=== PATIENT | male | born 1930 | race Caucasian/White ===

== ENCOUNTER 2016-06-22 08:15 | Emergency (ER) | payer OTHER ==
[2016-06-22 08:20] VITALS: BP 146/96
[2016-06-22 08:43] LABS: MANUAL DIFF NEEDED? NO
[2016-06-22 08:46] LABS: BASO% 0.2 % (0.0-0.8); EOS# 0.09 X1000 (0.0-0.7); HEMOGLOBIN 13.8 g/dL (14.0-18.0); IMM GRAN# 0.07 X1000 (0.0-0.04); IMM GRAN% 0.8 % (0.0-0.5); LYMPH# 2.13 X1000 (1.2-3.4); MCH 32.4 PG (27-31); MCHC 33.7 g/dL (33-37); MCV 96.2 FL (81-99); MONO# 0.64 X1000 (0.11-0.59); MONO% 7.2 % (1.7-9.3); MPV 10.7 FL (7.4-10.4); NEUT% 66.8 % (42.2-75.2); PLT 166 X1000 (130-400); RBC 4.26 XMIL (4.7-6.1)
[2016-06-22 08:54] LABS: INR 1.23; PROTIME 13.1 Seconds (9.2-11.7)
--- NOTE | 2016-06-22 09:39 | PROVIDER DOCUMENTATION ---
HPI-Musculoskeletal Pain/Inj - GENERAL Chief Complaint: Extremity Pain Stated Complaint: poss bloot clot Lft leg Time Seen by Provider: 06/22/16 08:18 Source: patient - HX OF PRESENT ILLNESS-MUSKULOSKELTAL Nature of Presenting Problem: pt is a 86 yo M that presents to the Er left leg and thigh pain similar to his pain when he had a blood clot before. He recently had his Coumadin to 2.5mg from 5mg. Denies cp, sob, or swelling Quality of Pain: reports: dull Severity in ED: mild, moderate Onset/Duration: unsure Timing: still present, constant Modifying Factors: improves with: nothing Locality of Occurance: Home Similar Symptoms Previously?: Yes Recently seen or treated by another doctor?: No - LOWER EXTREMITY PAIN/INJURY Lower Extremities Pain: leg: left, thigh: left Context / Method of Injury: reports: unknown Associated Symptoms: reports: denies symptoms Review of Systems - Adult - REVIEW OF SYSTEMS - ADULT Constitutional: denies: chills, fever Eyes: reports: no symptoms reported Ears, Nose, Mouth & Throat: reports: no symptoms reported Cardiovascular: denies: chest pain, palpitations Respiratory: denies: dyspnea on exertion, shortness of breath Gastrointestinal: denies: abdominal pain, nausea, vomiting Genitourinary: reports: no symptoms reported Musculoskeletal: reports: see HPI Integumentary: reports: no symptoms reported Neurological: reports: no symptoms reported Psychiatric: reports: no symptoms reported Endocrine: reports: no symptoms reported Hematologic/Lymphatic: reports: no symptoms reported Allergic/Immunologic: reports: no symptoms reported All Other Systems: Reviewed and Negative Past History - Adult - PAST MEDICAL HISTORY-ADULT Review of Records: reports: Old Records Reviewed, Nursing Assessment Review, Medications Reviewed Cardiovascular: reports: blood clots - PRIOR SURGERIES/PROCEDURES Surgical/Procedure History: reports: reviewed, not pertinent - IMMUNIZATION STATUS Childhood Immunizations: See Nurse Assessment Flu Vaccine: See Nurse Assessment - FAMILY HISTORY Family History: reviewed, not pertinent - SOCIAL HISTORY Living Situation: family Physical Exam-Injury Related - Physical Exam-Injury Related Initial Vital Signs Reviewed: Yes General Appearance: alert, no apparent distress Eyes: PERRL/EOMI, pink conjunctivae Head, Ears, Nose, Mouth & Throat: normocephalic/atraumatic, moist mucous membranes, normal ENT inspection Neck: non-tender, full range of motion, normal inspection Respiratory: lungs clear, normal breath sounds, no respiratory distress, no accessory muscle use Cardiovascular: regular rate, rhythm, no edema, no murmur Peripheral Pulses: dorsalis-pedis (R): 4+, dorsalis-pedis (L): 4+ Abdominal Exam: normal bowel sounds, non tender, soft Extremity: no calf tenderness, normal capillary refill, pelvis stable Integumentary: warm/dry, other (varicos vein left lower leg) Neurologic: grossly normal, no motor/sensory deficits Psych/Mental Status: normal mood/affect, normal thought process, oriented x 3 Progress - PLAN OF CARE/RESULTS Progress/Plan/Lab Results: Vital Signs Temp Pulse Resp BP Pulse Ox 06/22/16 08:18 97.9 F 61 18 146/96 99 Iodinated Contrast Media - Oral and Allergy (Severe, Verified 05/13/16 10:23) RASH IV DYE Ascorbic Acid [Vitamin C] 500 mg PO QAM 06/19/15 Carvedilol Phosphate [Coreg Cr] 40 mg PO QAM 06/19/15 Diphenhydramine [Benadryl] 25 mg PO QHS 06/19/15 Finasteride [Proscar] 5 mg PO QAM 06/19/15 Furosemide [Lasix] 5 mg PO QAM 06/19/15 Vit No.78/Iron/FA [Prenatabs FA Tablet] 1 each PO QAM 06/19/15 Temazepam [Restoril] 30 mg PO HS 06/19/15 Thiamine HCl [Vitamin B-1] 250 mg PO QAM 06/19/15 Warfarin [Coumadin] 2.5 mg PO DIRECTED 06/19/15 Warfarin [Coumadin] 5 mg PO QHS 06/19/15 Doxycycline Hyclate 100 mg PO Q12HR #14 capsule 05/06/16 Laboratory 06/22/16 06/22/16 08:32 08:32 WBC 8.87 RBC 4.26 L Hgb 13.8 L Hct 41.0 L MCV 96.2 MCH 32.4 H MCHC 33.7 RDW Std Deviation 14.8 H Plt Count 166 MPV 10.7 H Immature Gran % (Auto) 0.8 H Neut % (Auto) 66.8 Lymph % (Auto) 24.0 Lynn % (Auto) 7.2 Eos % (Auto) 1.0 Baso % (Auto) 0.2 Immature Gran # (Auto) 0.07 H Neut # (Auto) 5.92 Lymph # (Auto) 2.13 Lynn # (Auto) 0.64 H Eos # (Auto) 0.09 Baso # (Auto) 0.02 PT 13.1 H INR 1.23 Orders Category Date Time Status CBC WITH ELECTRONIC DIFF [HEME] Stat Lab 06/22/16 08:32 Completed PT [PROTIME WITH INR] [COAG] Stat Lab 06/22/16 08:32 Completed US [Venous U/S Left Leg] [CV] Stat Ther 06/22/16 08:18 Ordered pt will be d/c home f/u with pcp, increased Coumadin to 5mg daily per . pt was clinically stable, pt understood instructions. - ULTRASOUND (By Radiology) 1 US Study: Lower Ext (left) Impression: Abnormal US Results: no dvt, just superficial - CONSULTS/PCP/HOSPITALIST Notification #1 *Consult/PCP/Hospitalist*: Time Discussed: 09:30 Reason/Comments: increase coumadin to 5mg daily Consult Disposition: F/U in office Departure - Departure Time of Disposition Order: 09:34 DIAGNOSIS: Subtherapeutic anticoagulation Superficial thrombophlebitis Qualifiers: Superficial thrombophlebitis-Involved body area: lower extremity Laterality: left Qualified Code(s): I80.02 - Phlebitis and thrombophlebitis of superficial vessels of left lower extremity Disposition: HOME 01 Certified Medical Emergency: Emergent Condition: Stable Additional Instructions: ED Follow Up Instructions: You have been treated by a care provider in the Emergency Department. These instructions are being provided to you so you can have an understanding of how to care for yourself upon discharge. Upon discharge from the Emergency Department, you are responsible for making arrangements for follow-up care by a physician of your choice. Take all prescribed medications as directed. Return to the Emergency Department immediately for any new or worsening symptoms. You may call the Physician Referral phone number at [phone] to obtain a list of Physicians who are taking new patients. Referrals: Andrew Canseco MD [Primary Care Provider] - Call for Appoint. 1-2days Attestation - Scribe Verification/Attestation Scribe:: Chuy Whiteside Acting as Scribe for:: Hamlet Saucedo Scribe documention review:: This chart was documented by a scribe and accurately reflects the service the provider performed and the decisions made by the provider. Physician Attestation - Physician Attestation I, the provider, attest to the following statement:: Hamlet Saucedo Physician documentation Attestation:: This documentation recorded by the scribe accurately reflects the service I personally performed and the decisions made by me.
== END 2016-06-22 09:49 | disposition home or self-care (01) ==
LOC: ED 08:15
DX: I80.02 Phlebitis and thrombophlebitis of superficial vessels of left lower extremity (principal); Z79.01 Long term (current) use of anticoagulants; M79.605 Pain in left leg; M79.652 Pain in left thigh; Z86.718 Personal history of other venous thrombosis and embolism; Z79.899 Other long term (current) drug therapy; Z79.52 Long term (current) use of systemic steroids
CPT/HCPCS: 85025; 85610; 93971

== ENCOUNTER 2019-01-05 14:30 | Inpatient (IN) ==
[2019-01-05] MEDS ORDERED: KEFZOL 1 GM/D5W 1 GM/50 ML IVPB IV ONE ×2 (14:37→16:12)
[2019-01-05] MEDS ORDERED: BOOSTRIX VACCINE IM ONE (14:49)
--- NOTE | 2019-01-05 15:04 | PROVIDER DOCUMENTATION ---
This chart was entered by Julia Baeza Scribe, acting as scribe for Manuela Morales CRNP. HPI-General Adult - General Chief Complaint: Fall Stated Complaint: FALL/ EXTREMITY INJURY Time Seen by Provider: 01/05/19 14:30 Source: patient, EMS Allergies/Adverse Reactions: Patient Allergies Allergy/AdvReac Type Severity Reaction Status Date / Time Iodinated Contrast Media Allergy Severe RASH Verified 12/10/18 17:59 clindamycin Allergy Unknown Verified 12/10/18 18:01 diphenhydramine Allergy HIVES Verified 12/10/18 18:01 meclizine [From Antivert] Allergy Unknown Verified 12/10/18 18:01 metronidazole [From Flagyl] Allergy Unknown Verified 12/10/18 18:01 Home Medications: Home Medication List Medication Instructions Recorded Confirmed Last Taken Type Ascorbic Acid [Vitamin C] 500 mg PO QAM 06/19/15 06/19/15 06/21/16 08:00 History Carvedilol Phosphate [Coreg Cr] 40 mg PO QAM 06/19/15 06/19/15 06/21/16 08:00 History Finasteride [Proscar] 5 mg PO QPM 06/19/15 06/19/15 06/21/16 08:00 History Furosemide [Lasix] 40 mg PO QAM 06/19/15 06/19/15 06/21/16 08:00 History Temazepam [Restoril] 30 mg PO HS 06/19/15 06/19/15 06/21/16 21:00 History Prednisone 10 mg PO QAM 06/22/16 06/22/16 06/21/16 08:00 History Acyclovir 800 mg PO 5XDAY 01/05/19 01/05/19 Unknown History Bethanechol Chloride 50 mg PO Q6H 01/05/19 01/05/19 Unknown History Cyclobenzaprine HCl 10 mg PO Q8H PRN 01/05/19 01/05/19 Unknown History Gabapentin 600 mg PO TID PRN 01/05/19 01/05/19 Unknown History Losartan Potassium 25 mg PO QPM 01/05/19 01/05/19 Unknown History Meloxicam 7.5 mg PO DAILY PRN 01/05/19 01/05/19 Unknown History Pantoprazole Sodium 40 mg PO BID 01/05/19 01/05/19 Unknown History Warfarin [Coumadin] 3 mg PO DAILY 01/05/19 01/05/19 Unknown History - History of Present Illness -Gen Adult Nature of Presenting Problems: 88 y/o male presents to ED with R open ankle fracture onset just prior to arrival due to fall. Pt reports he fell while using his walker. Pt states the pain is burning. Pt is alert and oriented. Location of Pain/Injury: reports: lower extremity Pain Radiation: reports: no radiation Quality of Pain: reports: burning Severity: reports: moderate, severe Onset/Duration: reports: just prior to arrival Timing: reports: still present Context/Activities at Onset: reports: other (fall) Modifying Factors: worse with: movement, palpation Associated Symptoms: reports: joint pain (open R ankle fracture) Similar Symptoms Previously?: No Recently seen or treated by another doctor?: No Review of Systems - Adult - REVIEW OF SYSTEMS - ADULT Constitutional: denies: chills, fever Eyes: reports: no symptoms reported Ears, Nose, Mouth & Throat: reports: no symptoms reported Cardiovascular: denies: chest pain, palpitations Respiratory: denies: cough, shortness of breath Gastrointestinal: denies: abdominal pain, diarrhea, nausea, vomiting Genitourinary: reports: no symptoms reported Musculoskeletal: reports: joint pain (R open ankle fracture). denies: back pain Integumentary: reports: no symptoms reported Neurological: denies: dizziness/vertigo, seizure Psychiatric: reports: no symptoms reported Endocrine: reports: no symptoms reported Hematologic/Lymphatic: reports: no symptoms reported Allergic/Immunologic: reports: no symptoms reported All Other Systems: Reviewed and Negative Past History - Adult - PAST MEDICAL HISTORY-ADULT Review of Records: reports: Old Records Reviewed, Nursing Assessment Review, Medications Reviewed Major Childhood Illnesses: reports: denies history Cardiovascular: reports: blood clots, CAD Gastrointestinal: reports: cancer (colon) Obstetrical/Gynecological: reports: denies history Genitourinary: reports: denies history Musculoskeletal: reports: denies history Neurological: reports: denies history Endocrine/Immune: reports: denies history Other Conditions: reports: denies history - PRIOR SURGERIES/PROCEDURES Surgical/Procedure History: reports: reviewed, not pertinent, bowel surgery (colon), orthopedic (extremity) (R rotator cuff), back/neck, other (varicose veins) - IMMUNIZATION STATUS Childhood Immunizations: See Nurse Assessment Flu Vaccine: See Nurse Assessment - FAMILY HISTORY Family History: reviewed, not pertinent - SOCIAL HISTORY Smoking: non-smoker Substance Use: none/never Alcohol Use Frequency: never Living Situation: family Physical Exam-General - PHYSICAL EXAM-ADULT Initial Vital Signs Reviewed: Yes - CONSTITUTIONAL General Appearance: appears well, alert, no apparent distress - EYES Eyes: PERRL/EOMI, pink conjunctivae - HEAD, EARS, NOSE, MOUTH & THROAT HENMT: normocephalic/atraumatic, moist mucous membranes, normal ENT inspection - NECK Neck: non-tender, full range of motion - RESPIRATORY Respiratory: chest non-tender, lungs clear, normal breath sounds - CARDIOVASCULAR Cardiovascular: normal peripheral pulses, regular rate, rhythm - MUSCULOSKELETAL Back Exam: normal inspection, no CVA tenderness, no vertebral tenderness Extremity: other (R open ankle fracture). negative: normal range of motion, normal gait - SKIN Integumentary: normal color, warm/dry - NEUROLOGIC Neurologic: grossly normal - PSYCHIATRIC Psych/Mental Status: normal mood/affect, normal thought content, normal thought process, oriented x 3 Progress - PLAN OF CARE/RESULTS Progress/Plan/Lab Results: Vital Signs - 8 hr 01/05/19 14:35 Temperature 98.4 F Pulse Rate 82 Respiratory Rate 16 Blood Pressure 109/72 O2 Sat by Pulse Oximetry 95 Orders Category Date Time Status Saline Loc NOW Care 01/05/19 14:36 Active ANKLE COMPLETE RIGHT [RAD] Stat Exams 01/05/19 14:34 Ordered CBC WITH ELECTRONIC DIFF [HEME] Stat Lab 01/05/19 14:36 Uncollected COMPREHENSIVE METABOLIC PANEL [CHEM] Stat Lab 01/05/19 14:36 Uncollected TYPE & SCREEN [BBK] Stat Lab 01/05/19 14:36 Uncollected Cefazolin 1 gm/D5w [Kefzol 1 gm/D5w] Med 01/05/19 14:37 Active 1 gm in 50 ml IV NOW Result Diagrams: 01/05/19 15:09 01/05/19 15:09 - XRAY 1 XRAY: Right XRAY Study: Ankle Impression: See EMR Report ([facility] - [address], [address], [place] [address] [facility] - [address] [facility] [place] [id number] Department of Imaging Patient: MACK LOWRY EADM Date: 01/05/19#: [id number] : 1930ADM Status: REG ERAcct#: [id number] Age/Sex: 88/MRoom/Bed: Loc: ED Ordering Physician: Manuela Morales Family Physician: Andrew Canseco MD Reason for Procedure: injury/open ___ Signed EXAM: ANKLE COMPLETE RIGHT INDICATION: injury/open TECHNIQUE: 2 views COMPARISON: None. FINDINGS: There is a fracture involving the distal shaft of the fibula with valgus angulation. There is also a comminuted fracture involving the distal tibia at its lateral aspect. There is marked dislocation of the distal tibia medially with respect to the talus. No other discrete fracture is identified. There is soft tissue edema around the ankle. IMPRESSION: Fractures of the distal tibia and fibula with significant dislocation of the distal tibia with respect to the talus as well. Electronically signed by Bennie Winters 01/05/2019 3:00 PM 01/05/19 1500 Interpreting Physician: Bennie Winters MD Dictated Date/Time: 01/05/19 2993 cc: Manuela Morales; Andrew Canseco MD) - CONSULTS/PCP/HOSPITALIST Notification #1 *Consult/PCP/Hospitalist*: Dr. Sparrow Time Discussed: 14:54 Reason/Comments: Open tibia/fibula fx Consult Disposition: other (Dr. Sparrow states he will look at the films and call back.) #2 Consult: Dr. Sparrow Time Discussed: 15:10 Reason/Comments: Open tibia/fibula fx Consult Disposition: other (Reduce, splint, and repeat x-ray: Dr. Sparrow called back at 1615 and states he will be in later today to repair the Fx. He wants to keep the patient NPO and admit to Dr. Cardoso.) #3 Consult: Dr. Cardoso Time Discussed: 16:24 Reason/Comments: Admission Consult Disposition: Will see in ED, Admit Procedures - SPLINTING Right Lower Extremity Other Location: Ankle Pre-Procedure Neurovascular Exam: Intact Splint Application (Hand-Made): Posterior OCL, Stir-Up Applied By: Mid-level Assisted By: title agent Post Procedure Neurovascular Exam: Intact - DISLOCATION REDUCTION Right Ankle Consent Form Signed?: Yes Time-Out Verification Completed?: Yes Pre-Procedure Neurovascular Exam: Intact Conscious Sedation: No Reduction Attempts: 1 Post Procedure Neurovascular Exam: Intact Post Reduction Film: Deformity Reduced, Fracture Present Post Reduction Splint Applied?: Yes Departure - Departure Date of Disposition Decision: 01/05/19 Time of Disposition Decision: 16:17 DIAGNOSIS: Open fracture of tibia and fibula Qualifiers: Encounter type: initial encounter Open fracture type: open type I or II Laterality: right Qualified Code(s): S82.201B - Unspecified fracture of shaft of right tibia, initial encounter for open fracture type I or II Lateral dislocation of tibia, proximal end, open Qualifiers: Encounter type: initial encounter Laterality: right Qualified Code(s): S83.144A - Lateral dislocation of proximal end of tibia, right knee, initial encounter Disposition: ADMITTED INPATIENT 09 Certified Medical Emergency: Emergent Condition: Stable Referrals and Follow-Ups: Andrew Canseco MD [Primary Care Provider] - - Critical Care Note This patient required my direct & personal management of CC.: No Attestation - Physician/ BENITO Attestation Patient care was provided by Advanced Practice Provider:: Yes Advanced Practice Provider:: Manuela Morales Advanced Practice Provider documentation review:: The Mid-level provider documentation, treatment plan and medical decision making was reviewed by the physician who agrees with all treatment and medical decision making by the [facility]. The physician spent face to face time with patient:: No Advanced Practice Provider documentation review:: Supervising physician onsite and consulted in the evaluation and care of this patient. The physician did not have a face to face encounter with the patient. This chart was documented by the indicated scribe, (Julia Baeza Scribe) and accurately reflects the services I performed and decisions made by , Manuela Morales CRNP, as attested by the provider's signature.
[2019-01-05] MEDS ORDERED: DILAUDID IV ONE (15:11)
[2019-01-05] MEDS ORDERED: ZOFRAN IV ONE (15:12)
[2019-01-05] MEDS ORDERED: NS 1,000 ML IV ONE (15:33)
[2019-01-05] MEDS ORDERED: NS 1,000 ML ONE ×2 (15:37→21:13)
[2019-01-05 15:49] LABS: BASO# 0.02 X1000 (0.0-0.2); BASO% 0.2 % (0.0-0.8); EOS# 0.08 X1000 (0.0-0.7); EOS% 0.8 % (0.0-10.0); HEMATOCRIT 37.3 % (42.0-52.0); HEMOGLOBIN 12.3 g/dL (14.0-18.0); IMM GRAN# 0.33 X1000 (0.0-0.04); IMM GRAN% 3.1 % (0.0-0.5); LYMPH# 1.38 X1000 (1.2-3.4); LYMPH% 13.1 % (20.5-51.1); MCH 31.9 PG (27-31); MCV 96.6 FL (81-99); MONO% 4.8 % (1.7-9.3); MPV 10.7 FL (7.4-10.4); NEUT# 8.21 X1000 (1.4-6.5); PLT 197 X1000 (130-400); RBC 3.86 XMIL (4.7-6.1); RDW 15.6 % (11.5-14.5); WBC 10.52 X1000 (4.8-10.8)
[2019-01-05 15:56] LABS: INR 1.41; PROTIME 17.5 Seconds (11.0-16.0)
[2019-01-05 16:01] LABS: PTT 27.9 Seconds (22.3-41.8)
[2019-01-05 16:05] LABS: ALB/GLOB RATIO 1.7; ALBUMIN 3.8 g/dL (3.5-5.0); CALCIUM 8.4 mg/dL (8.8-10.2); CREATININE 2.1 mg/dL (0.7-1.2); POTASSIUM 4.5 mmol/L (3.5-5.1); TOTAL BILIRUBIN 0.39 mg/dL (0.20-1.00); TOTAL PROTEIN 6.1 g/dL (6.3-8.3)
--- NOTE | 2019-01-05 16:32 | Diag Imaging Result Doc PS360 ---
EXAM: CHEST-PORTABLE INDICATION: admit TECHNIQUE: One view COMPARISON: 12/10/2018 FINDINGS: The lungs are grossly clear. There is no discrete pleural fluid collection or pneumothorax. The cardiomediastinal silhouette and central vasculature are grossly unremarkable. IMPRESSION: No evidence of acute pathology by plain radiograph. Electronically signed by Bennie Winters 01/05/2019 4:30 PM
--- NOTE | 2019-01-05 16:35 | Diag Imaging Result Doc PS360 ---
EXAM: ANKLE COMPLETE RIGHT INDICATION: post reduction TECHNIQUE: 2 views COMPARISON: None. FINDINGS: There has been interval reduction on the tibial and fibular fractures seen on the previous study. It is now clear that there are fractures of the medial malleolus as well as the lateral aspect of the distal tibia. There is better alignment as compared to the prior study. There is still anterior subluxation of the tibia with respect to the talus. Casting material is seen surrounding the ankle. There is soft tissue edema. IMPRESSION: Interval reduction of the ankle fracture/dislocation. Electronically signed by Bennie Winters 01/05/2019 4:32 PM
[2019-01-05] MEDS ORDERED: MORPHINE IV PRN ×2 (17:14→21:05)
[2019-01-05] MEDS ORDERED: TYLENOL PO PRN (17:14)
[2019-01-05] MEDS ORDERED: ZOFRAN IV PRN (17:14)
--- NOTE | 2019-01-05 18:27 | ORTHOPAEDICS CONSULTATION ---
DATE: 01/05/2019 HISTORY OF PRESENT ILLNESS: Patient is an 88-year-old male, who is status post fall at home. He fell while using his walker. He developed immediate pain and discomfort, and had a wound to his right ankle. He was in the emergency room and x-rays reveal a right ankle fracture-dislocation. The patient underwent local irrigation and debridement, provisional reduction, and splint was applied. He denies unconsciousness. Orthopedic consultation is requested. PAST MEDICAL HISTORY: Significant for coronary artery disease, history of blood clots, history of colon cancer. PAST SURGICAL HISTORY: Colon surgery, right rotator cuff repair, cervical spine surgery, lumbar spine surgery, surgery for varicose veins. HOME MEDICATIONS: Vitamins C 5100 mg p.o. q. morning, Coreg CR 40 mg p.o. q. morning, Proscar 5 mg p.o. q. evening, Lasix 40 mg p.o. daily, Restoril 30 mg p.o. at bedtime, prednisone 10 mg p.o. q. morning, acyclovir 800 mg p.o. 5 times a day, bethanechol chloride 50 mg p.o. q.6 hours, cyclobenzaprine HCL 10 mg p.o. q.8 hours p.r.n., gabapentin 600 mg p.o. t.i.d. p.r.n., losartan potassium 25 mg p.o. q. evening, meloxicam 7.5 mg p.o. daily p.r.n., pantoprazole sodium 40 mg p.o. b.i.d., Coumadin 3 mg p.o. daily. ALLERGIES: Iodinated contrast media, clindamycin, diphenhydramine. PHYSICAL EXAMINATION: Patient is awake, alert, and cooperative with exam. His bilateral upper extremities have no obvious deformities, no significant tenderness to palpation, nontender to gentle range of motion. His right lower extremity splint is intact. Patient does have some soiled blood through the dressing along medial aspect. He has diffuse tenderness to palpation. He is grossly neurovascularly intact distally. He is able flex down on his toes. He has an open wound along the medial distal tibia estimated to be approximately 10 cm. X-RAYS: The patient has a right trimalleolar ankle fracture-dislocation. Post- reduction x-ray revealed improved alignment with some posterior subluxation. IMPRESSIONS: Right grade 3A open ankle fracture-dislocation. PLAN: At this point, discussed treatment options with patient and family. At this time, would recommend to proceed with irrigation and debridement, and open reduction, internal fixation. Risks and benefits of surgery explained, risk of anesthesia, , bleeding, infection, failure to relieve pain, postoperative stiffness, nerve injury, blood clots, and other imponderables. All questions were answered. Patient and family agree with treatment plan. I discuss with Dr. Cardoso and he has been cleared from a medical standpoint. cc: Carter Sparrow MD [facility]
[2019-01-05] MEDS ORDERED: DIPRIVAN 1% ONE (18:29)
[2019-01-05] MEDS ORDERED: XYLOCAINE-MPF 2% ONE (18:30)
[2019-01-05] MEDS ORDERED: FENTANYL ONE (18:36)
[2019-01-05] MEDS ORDERED: NEOSPORIN G.U. IRRIGANT ONE (18:41)
[2019-01-05] MEDS ORDERED: EPHEDRINE ONE (19:05)
[2019-01-05] MEDS ORDERED: ATROPINE ONE (19:13)
[2019-01-05] MEDS ORDERED: OFIRMEV 1000 MG/ISOTONIC SOLN 1,000 MG/100 ML BOTTLE ONE (19:14)
--- NOTE | 2019-01-05 19:28 | HISTORY AND PHYSICAL ---
CHIEF COMPLAINT: Fall with leg fracture. HISTORY OF PRESENT ILLNESS: An 88-year-old white male has multiple medical problems. He was at home this afternoon and was walking down the [address] to go to the bathroom. He uses a walker but stated that "the walker got away from him." He fell suffering a rather severe looking open distal tibia-fibula fracture on his right leg. In the emergency room, this fracture was reduced to anatomical position and he was given antibiotics. Dr. Sparrow was notified and wanted to take him to the OR this evening. He is a primary care patient of Dr. Andrew Canseco. PAST MEDICAL HISTORY: 1. History of congestive heart failure. 2. Difficulty with bladder emptying. 3. History of hypertension. 4. 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 He had been off of Coumadin and on Lovenox bridging therapy last week for a dermatologic procedure on his right leg. He has been back on Coumadin for about a week. MEDICATIONS: These are yet to be reconciled. ALLERGIES: Contrast media, clindamycin, diphenhydramine, meclizine, and Flagyl. SOCIAL HISTORY: The patient stopped smoking at age 42. He is and lives with his . He has the support of grandsons who were present in the room. FAMILY HISTORY: Noncontributory to history of present illness. REVIEW OF SYSTEMS: The patient has not had any coughing, wheezing or shortness of breath. He has had no upper respiratory symptoms. He denies any nausea, vomiting, constipation, or diarrhea. He has chronic problems with emptying his bladder but apparently the previous urologic consultations have not resulted in any type of surgical intervention due to his overall age and the blood clot problem. The patient has had no chest pain or palpitations. He has had no significant swelling in his legs. The patient's states that he had shingles on his scalp on the right side of his head, but this seems to have resolved. He still has scabs in his scalp but no active vesicles. PHYSICAL EXAMINATION: GENERAL: He is a well-developed, well-nourished white male in no acute distress. It was noted at presentation his blood pressure was 109/72, present time it is 115/70, temperature is 98.4 degrees, pulse rate is 66, respirations 18 and nonlabored. HEENT: The sclerae are anicteric. Oral mucosa is adequately hydrated. Generally of normal coloration. NECK: No carotid bruits. LUNGS: Clear in all tamez. CARDIOVASCULAR: Regular. I do not detect a murmur. ABDOMEN: Protuberant. Bowel sounds are present. He is soft, nontender, nondistended. Right leg has some bullous looking lesions on the knee and below the patella. He has had a biopsy performed just below that. The remainder of the right leg is wrapped from reduction of his fracture. Left leg shows some chronic venous insufficiency but no significant edema or signs of fluid overload. NEUROLOGIC: The patient's hearing is poor. Other than that, his cranial nerves appear to be intact. He is able to move his arms freely in the bed. His legs obviously are still. LABORATORY: White blood cell count 10.5, hematocrit 37.3. PT is 17.5, INR 1.4. BUN is 41, creatinine 2.1, baseline from 2 and 3 years ago is 1.3 to 1.4. ASSESSMENT AND PLAN: 1. X-ray of the patient's leg initially showed a distal tibia fracture and distal fibula fracture with considerable displacement off of the foot. Reduction films show reasonable anatomic alignment. I spoke with Dr. Sparrow, is going to take the patient to surgery. We discussed his INR and Dr. Sparrow was comfortable operating with a tourniquet for the leg. Postoperatively, he will need to be restarted on Lovenox hopefully about 24 hours after procedure and we can also almost concomitantly restart Coumadin to get him to a therapeutic level assuming that his blood count stays stable. We will check a CBC, PT, INR postop and try and keep track of that very closely. 2. The patient's family gave a vague history of congestive heart failure and a "valve problem." I really do not see any clinical signs of this and will defer to Dr. Canseco if he has more details on this issue. 3. The patient had a recent bout of shingles in his scalp. It appears resolved to me, although he still has some scab formation up there. I do not see any active fasciculation. I think that he does not appear to be actively infected to me. 4. The bullous process on the patient's right leg has been biopsied and will be examined further on outpatient basis. 5. We are going to put intermittent compression boots on the patient. cc: Don Cardoso MD
[2019-01-05] MEDS ORDERED: MARCAINE 0.5% PF ONE (20:24)
[2019-01-05] MEDS ORDERED: KEFZOL 1 GM/D5W 2 GM/100 ML IVPB ONE (20:34)
[2019-01-05 20:37] LABS: URINE SOURCE CATH
[2019-01-05 20:41] LABS: BILIRUBIN URINE NEGATIVE (NEGATIVE); BLOOD URINE NEGATIVE (NEGATIVE); COLOR YELLOW; GLUCOSE URINE NEGATIVE (NEGATIVE); KETONE URINE NEGATIVE (NEGATIVE); LEUKOCYTES URINE NEGATIVE (NEGATIVE); NITRITE URINE NEGATIVE (NEGATIVE); PROTEIN URINE NEGATIVE (NEGATIVE); SP GRAVITY URINE 1.011; TURBIDITY URINE CLEAR (CLEAR); UROBILINOGEN URINE NORMAL (NORMAL)
[2019-01-05 20:43] LABS: UR EPITHELIAL CELLS <10 /HPF (<10); URINE BACTERIA NEGATIVE /HPF; URINE RBC <10 /HPF (<10); URINE WBC <10 /HPF (<10)
[2019-01-05] MEDS ORDERED: HALDOL IV PRN (21:15)
--- NOTE | 2019-01-05 22:56 | OPERATIVE NOTE ---
PROCEDURE DATE: 01/05/2019 PREOPERATIVE DIAGNOSIS: Right grade 3A open trimalleolar ankle fracture dislocation. POSTOPERATIVE DIAGNOSIS: Right grade 3A open trimalleolar ankle fracture-dislocation. PROCEDURES: 1. Irrigation and debridement, right grade 3A open trimalleolar ankle fracture-dislocation. 2. Open reduction internal fixation right grade 3A open trimalleolar ankle fracture-dislocation. SURGEON: Carter Sparrow MD. ANESTHESIA: General. IV FLUIDS: 1700 mL of lactated Ringer's. ESTIMATED BLOOD LOSS: 30 mL. TOURNIQUET TIME: 60 minutes at 350 mmHg. COMPLICATIONS: None. INDICATION: The patient is a pleasant, 88-year-old male, who is status post fall earlier today while on his walker. He developed pain and discomfort with a large open wound on the medial aspect of his ankle. He came to [facility], and x-rays revealed a right open trimalleolar ankle fracture-dislocation. Patient underwent provisional pinning of the wound with provisional reduction in the emergency room. After obtaining preop medical clearance, a recommendation was made to proceed with irrigation and debridement of his right grade 3A open trimalleolar ankle fracture-dislocation and open reduction fixation. The risks and benefits of surgery were explained, including the risks of anesthesia, , bleeding, infection, failure to relieve pain, postoperative stiffness, nerve injury, blood clots, and other imponderables. All questions were answered. The patient's family wished to proceed with surgery. DETAILS OF OPERATION: Patient was taken to the operating room and placed supine on the operating table and underwent general anesthesia. Once adequate anesthesia was obtained, the existing splint was removed. The right lower extremity was prepped and draped in the usual sterile fashion. Attention was turned to the large wound measuring 12 cm in length along the medial distal tibia, and 6000 mL of antibiotic pulsatile lavage was used to copiously irrigate the fracture on the medial malleolus, into the joint and throughout all portions of the wound. Debridement of the fracture site was conducted as well, followed by copious irrigation with 6000 mL of antibiotic irrigation. After this had been performed, attention was then turned to the lateral aspect of the distal fibula. An Esmarch was used to exsanguinate the right lower extremity. The tourniquet was inflated to 350 mmHg. A lateral incision was made with skin knife down the distal fibula. The incision was carried into the subcutaneous tissue. The fracture site was identified. It was sharply debrided. After adequate debridement had been conducted, an 8- hole one-third tubular locking plate was placed on the lateral distal fibula. It was first secured distal to the fracture site with a locking screw. A bicortical screw was then placed at the proximal site while maintaining the reduction. After this was performed, 2 more locking screws were placed distal to the fracture site as well as 2 locking screws placed proximal to the fracture site. After this had been performed, attention was then turned to the medial malleolus, where I copiously irrigated the fracture site once again. The reduction clamp was then performed. Two 4-0 cannulated screws were passed, with good purchase on each screw. There appeared to be good fixation. The syndesmosis was stressed, and there was no evidence of instability. The patient did have a small posterior malleolar fracture which did not warrant fixation. Posterior drawer testing showed good stability. After this had been performed, the wound was copiously irrigated. The deltoid was reapproximated with 2-0 Vicryl. A 2-0 Prolene was used to close the skin in the medial wound in an interrupted fashion. Final irrigation was performed of the lateral wound, and it was closed with 2-0 Vicryl followed by skin xiomara placed on the lateral wound. 0.5% Marcaine without epinephrine was injected both medially and laterally. Adaptic and sterile 4 x 4s were placed on the ankle as well as the anterior portion of the tibia, which had previous indwelling sutures from prior surgery. This was followed by 4x4s, ABD pad, Webril and a posterior splint with a stirrup. The patient tolerated the procedure well. No complications. He was transferred to the recovery room in stable condition. cc: Carter Sparrow MD
[2019-01-05] MEDS: TYLENOL PO SCH (23:37)
[2019-01-05] MEDS: COLACE PO SCH (23:37)
[2019-01-05] MEDS: COUMADIN PO SCH (23:49)
[2019-01-05] MEDS: NS 1,000 ML IV SCH (23:52)
[2019-01-05] MEDS: KEFZOL 1 GM/D5W 2 GM/100 ML IVPB IV SCH (23:52)
[2019-01-06] MEDS: TYLENOL PO SCH ×3 (06:23→20:42)
[2019-01-06 06:28] LABS: INR 1.44; PROTIME 17.8 Seconds (11.0-16.0)
[2019-01-06 06:34] LABS: ALB/GLOB RATIO 1.4; ALBUMIN 3.4 g/dL (3.5-5.0); CALCIUM 7.7 mg/dL (8.8-10.2); CREATININE 1.9 mg/dL (0.7-1.2); POTASSIUM 4.5 mmol/L (3.5-5.1); TOTAL BILIRUBIN 0.33 mg/dL (0.20-1.00); TOTAL PROTEIN 5.8 g/dL (6.3-8.3)
[2019-01-06 06:38] LABS: BASO# 0.01 X1000 (0.0-0.2); BASO% 0.1 % (0.0-0.8); HEMATOCRIT 37.5 % (42.0-52.0); HEMOGLOBIN 12.1 g/dL (14.0-18.0); LYMPH# 1.22 X1000 (1.2-3.4); LYMPH% 10.7 % (20.5-51.1); MCH 31.9 PG (27-31); MCHC 32.3 g/dL (33-37); MCV 98.9 FL (81-99); MONO# 0.47 X1000 (0.11-0.59); MONO% 4.1 % (1.7-9.3); MPV 11.1 FL (7.4-10.4); NEUT% 85.1 % (42.2-75.2); PLT 184 X1000 (130-400); RBC 3.79 XMIL (4.7-6.1); RDW 15.7 % (11.5-14.5)
[2019-01-06] MEDS: NS 1,000 ML IV SCH ×2 (07:54→23:31)
[2019-01-06] MEDS: FERROUS SULFATE PO SCH (08:45)
--- NOTE | 2019-01-06 09:07 | ORTHOPAEDICS PROGRESS NOTE ---
DATE: 01/06/2019 SUBJECTIVE: The patient is a pleasant, 88-year-old male who is 1 day status post I and D and ORIF for a right grade 3A open trimalleolar ankle fracture-dislocation. He is currently resting comfortably. PHYSICAL EXAMINATION: On the patient's right lower extremity, his splint is intact. He is grossly neurovascularly intact. Able to flex and extend all of his toes. LABORATORY DATA: His hemoglobin is 12.1, hematocrit is 37.5. His PT is 17.8 and INR of 1.44. IMPRESSION: Postoperative day #1 status post incision and drainage, and open reduction and internal fixation of right grade 3A open trimalleolar ankle fracture-dislocation. PLAN: At this point, the patient will be maintained on his IV antibiotics. We will mobilize with physical therapy, nonweightbearing to the right lower extremity. We will consult social worker palliative care for discharge planning. cc: Carter Sparrow MD
[2019-01-06] MEDS: KEFZOL 1 GM/D5W 2 GM/100 ML IVPB IV SCH ×2 (13:25→20:43)
[2019-01-06] MEDS: COLACE PO SCH (20:42)
[2019-01-06] MEDS: COUMADIN PO SCH (20:42)
[2019-01-06] MEDS: RESTORIL PO SCH (21:54)
[2019-01-06] MEDS: PRED FORTE 1% OPH SUSPENSION RIGHT EYE SCH (23:32)
[2019-01-07] MEDS: KEFZOL 1 GM/D5W 2 GM/100 ML IVPB IV SCH ×3 (05:00→21:07)
[2019-01-07] MEDS: TYLENOL PO SCH ×3 (05:00→21:07)
[2019-01-07] MEDS: OXY IR PO PRN ×4 (06:38→21:27)
[2019-01-07 06:55] LABS: HEMATOCRIT 32.7 % (42.0-52.0); HEMOGLOBIN 10.6 g/dL (14.0-18.0)
--- NOTE | 2019-01-07 07:19 | ORTHOPAEDICS PROGRESS NOTE ---
DATE: 01/07/2019 SUBJECTIVE: The patient is a pleasant, 88-year-old male who is 2 days status post I and D, and ORIF for a right comminuted medial trimalleolar ankle fracture-dislocation. The patient is currently resting comfortably. PHYSICAL EXAMINATION: The patient's right lower extremity splint is intact. He is grossly neurovascularly intact. Able to flex and extend all of his toes. Compartments are soft. LABORATORY DATA: His labs are pending this morning. IMPRESSION: Postoperative day #2 status post incision and drainage, and open reduction and internal fixation for a right grade 3A open ankle fracture-dislocation. PLAN: At this point, the patient will continue to progress with physical therapy. director pharmacy services have been consulted for discharge planning. Patient is being maintained nonweightbearing to the right lower extremity. cc: MD Andrew Mendes MD
[2019-01-07] MEDS: NS 1,000 ML IV SCH ×3 (07:37→22:40)
[2019-01-07] MEDS: FERROUS SULFATE PO SCH (08:51)
[2019-01-07] MEDS: PRED FORTE 1% OPH SUSPENSION RIGHT EYE SCH ×4 (08:51→21:09)
[2019-01-07] MEDS: NEURONTIN PO SCH ×2 (12:49→16:47)
--- NOTE | 2019-01-07 13:56 | PROGRESS NOTE ---
DATE: 01/07/2019 SUBJECTIVE: Mr. Zhu broke his right ankle trimalleolar fracture. He is trying to learn how to walk on 1 foot and so he wants to go home. He does not want to go to rehab. OBJECTIVE: Temp 98.3 degrees, pulse 78, respirations 20, blood pressure 142/78. Pupils are equal and round. Lungs are clear in all lung tamez. Cardiovascular regular rate without murmur or S3. Urine output was 1700 mL. ASSESSMENT AND PLAN: 1. Postoperative day #2 status post incision and drainage open reduction and internal fixation for grade 3 open ankle fracture and seems to be doing well. Continue physical therapy. 2. He has a history of deep venous thrombosis so we will make sure he continues his anticoagulation. He has a bolus type of process in the right leg that will follow. Nutrition seems to be good. 3. Report of orders: He is on Colace 200 mg at bedtime, Coumadin 3 mg at bedtime, oxycodone IR 5 mg q.3 hours p.r.n., normal saline at 85 mL an hour. Getting cefazolin 1 g or 2 g IV q.8. I will put him back on his Neurontin 600 mg t.i.d. He gets Restoril 30 mg at bedtime. He has some eye drops, prednisolone that he uses. LABORATORY DATA: Review of his lab is pretty unremarkable. His pro time is 17.8, INR 1.4. cc: Andrew Canseco MD
[2019-01-07] MEDS ORDERED: FLEXERIL PO PRN (18:07)
[2019-01-07] MEDS ORDERED: NEURONTIN PO PRN (18:07)
[2019-01-07] MEDS ORDERED: MOBIC PO PRN (18:07)
[2019-01-07] MEDS ORDERED: MUCINEX D PO SCH (21:00)
[2019-01-07] MEDS: COLACE PO SCH (21:07)
[2019-01-07] MEDS: ZOVIRAX PO SCH (21:07)
[2019-01-07] MEDS: COUMADIN PO SCH (21:07)
[2019-01-07] MEDS: RESTORIL PO SCH (21:07)
[2019-01-07] MEDS: PROTONIX PO SCH (21:07)
[2019-01-07] MEDS: MYCOSTATIN POWDER TOP SCH (21:08)
[2019-01-07] MEDS: PROSCAR PO SCH (21:08)
[2019-01-07] MEDS: RANEXA PO SCH (21:08)
[2019-01-07] MEDS: URECHOLINE PO SCH (22:37)
[2019-01-08] MEDS: URECHOLINE PO SCH ×4 (03:49→20:46)
[2019-01-08] MEDS: NS 1,000 ML IV SCH ×2 (05:08→10:40)
[2019-01-08] MEDS: TYLENOL PO SCH ×3 (05:08→20:46)
[2019-01-08] MEDS: KEFZOL 1 GM/D5W 2 GM/100 ML IVPB IV SCH ×3 (05:08→20:47)
[2019-01-08 06:50] LABS: HEMATOCRIT 33.5 % (42.0-52.0); HEMOGLOBIN 10.8 g/dL (14.0-18.0)
[2019-01-08] MEDS ORDERED: COUMADIN PO SCH (09:00)
--- NOTE | 2019-01-08 10:11 | PROGRESS NOTE ---
DATE: 01/08/2019 SUBJECTIVE: He is feeling better. The pain is controlled. He wants to go to rehab, and I recommend strongly that he does. He is at too high risk to fall, and so he would like to pursue rehab in [place]. OBJECTIVE: Vital Signs: Temperature 98.4 degrees, pulse 82, respirations 16, blood pressure 130/77. HEENT: Pupils are equal and round. Lungs: Clear in all lung tamez. Cardiovascular: Regular rhythm and rate without murmur or S3. Abdomen: Soft. Skin: Warm and dry. Extremities: Right leg wrapped. The foot is warm. PLAN: We need to follow his ProTime. 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 He is getting acyclovir 800 mg 5 times a day, and as far as his left ventricular dysfunction and heart failure, it is well compensated. cc: Andrew Canseco MD
[2019-01-08] MEDS: FERROUS SULFATE PO SCH (10:12)
[2019-01-08] MEDS: PREDNISONE PO SCH (10:13)
[2019-01-08] MEDS: VITAMIN C PO SCH (10:13)
[2019-01-08] MEDS: LASIX PO SCH (10:13)
[2019-01-08] MEDS: ZOVIRAX PO SCH ×5 (10:14→20:46)
[2019-01-08] MEDS: MUCINEX D PO SCH ×2 (10:14→20:46)
[2019-01-08] MEDS: NEURONTIN PO SCH ×3 (10:14→16:03)
[2019-01-08] MEDS: COREG CR PO SCH (10:14)
[2019-01-08] MEDS: PROTONIX PO SCH ×2 (10:14→20:47)
[2019-01-08] MEDS: PRED FORTE 1% OPH SUSPENSION RIGHT EYE SCH ×4 (10:14→20:47)
[2019-01-08] MEDS: MYCOSTATIN POWDER TOP SCH ×2 (10:15→20:47)
[2019-01-08] MEDS: OXY IR PO PRN ×2 (10:42→20:47)
[2019-01-08] MEDS: MILK OF MAGNESIA PO PRN (14:09)
[2019-01-08] MEDS: RANEXA PO SCH ×2 (16:03→20:47)
[2019-01-08] MEDS: ZOFRAN IV PRN (17:14)
[2019-01-08] MEDS: COUMADIN PO SCH (20:46)
[2019-01-08] MEDS: COLACE PO SCH (20:47)
[2019-01-08] MEDS: PROSCAR PO SCH (20:47)
[2019-01-08] MEDS: RESTORIL PO SCH (20:47)
[2019-01-09] MEDS: URECHOLINE PO SCH ×4 (02:11→21:42)
[2019-01-09] MEDS: TYLENOL PO SCH ×3 (04:13→21:42)
[2019-01-09] MEDS: KEFZOL 1 GM/D5W 2 GM/100 ML IVPB IV SCH (04:33)
--- NOTE | 2019-01-09 09:51 | PROGRESS NOTE ---
DATE: 01/09/2019 Mr. Zhu had a rough night last night. I am going to hold his sleeping medicine and hold his gabapentin and continue physical therapy. We are looking for rehab possibilities in [place]. OBJECTIVE: Temperature 98.1 degrees, pulse 96, respirations 18, blood pressure 129/59. HEENT: Pupils are equal and round. Lungs: Clear in all lung tamez. Cardiovascular: Regular rhythm and rate without murmur or S3. Abdomen: Soft. Skin: Warm and dry. Extremities: Right foot wrapped Pepito bandage. ASSESSMENT AND PLAN: 1. Right trimalleolar fracture. Continue physical therapy and is not going to be able to bear weight on that foot for several weeks. 2. History of deep venous thrombosis in the distant past. He is back on his anticoagulation. 3. History of constipation. Continue his Colace. 4. History of coronary artery disease. Aware. So I think at this point, I am going to stop his Restoril and I am going to stop his Neurontin. cc: Andrew Canseco MD
[2019-01-09] MEDS: PRED FORTE 1% OPH SUSPENSION RIGHT EYE SCH ×3 (11:14→18:13)
[2019-01-09] MEDS: MYCOSTATIN POWDER TOP SCH ×3 (11:14→21:41)
[2019-01-09] MEDS: LASIX PO SCH (11:15)
[2019-01-09] MEDS: PREDNISONE PO SCH (11:15)
[2019-01-09] MEDS: VITAMIN C PO SCH (11:15)
[2019-01-09] MEDS: FERROUS SULFATE PO SCH (11:15)
[2019-01-09] MEDS: PROTONIX PO SCH ×2 (11:16→21:41)
[2019-01-09] MEDS: ZOVIRAX PO SCH ×5 (11:16→21:42)
[2019-01-09] MEDS: COREG CR PO SCH (11:16)
[2019-01-09] MEDS: MUCINEX D PO SCH ×2 (11:16→21:41)
[2019-01-09] MEDS: NS 1,000 ML IV SCH (15:06)
[2019-01-09] MEDS: OXY IR PO PRN (16:26)
[2019-01-09] MEDS: RANEXA PO SCH ×2 (18:12→21:41)
[2019-01-09] MEDS: COLACE PO SCH (21:41)
[2019-01-09] MEDS: PROSCAR PO SCH (21:41)
[2019-01-09] MEDS: COUMADIN PO SCH (21:41)
[2019-01-09] MEDS: ZOFRAN IV PRN (22:33)
--- NOTE | 2019-01-10 00:19 | ORTHOPAEDICS PROGRESS NOTE ---
DATE: 01/09/2019 SUBJECTIVE: The patient is a pleasant, 88-year-old male, who is 4 days status post I and D for a right open ankle fracture-dislocation. He is currently resting comfortably. Patient is also approximately 2 weeks status post excision of a skin lesion on his lower leg per Dermatology. He is currently resting comfortably. OBJECTIVE: On physical examination, the patient's right lower extremity splint is intact. He has good capillary refill distally. LABS: His hemoglobin from yesterday was 10.8, hematocrit is 33.5. IMPRESSION: Postoperative day #4 status post I and D and open reduction internal fixation for right grade 3 open ankle fracture-dislocation. PLAN: At this point, patient is scheduled to go to rehab potentially tomorrow. Will attempt, We will change his dressing and convert him to a short leg cast tomorrow and discontinue his sutures from the previous procedure. The patient will remain nonweightbearing right lower extremity. cc: MD Andrew Mendes MD MTDD
[2019-01-10] MEDS: NS 1,000 ML IV SCH (00:58)
[2019-01-10] MEDS: PROTONIX PO SCH ×2 (01:00→11:26)
[2019-01-10] MEDS: TYLENOL PO SCH ×3 (01:00→18:02)
[2019-01-10] MEDS: COLACE PO SCH (01:01)
[2019-01-10] MEDS: MUCINEX D PO SCH ×2 (01:02→11:25)
[2019-01-10] MEDS: RANEXA PO SCH ×2 (01:02→18:01)
[2019-01-10] MEDS: PROSCAR PO SCH (01:02)
[2019-01-10] MEDS: URECHOLINE PO SCH ×4 (01:03→18:01)
[2019-01-10] MEDS: PRED FORTE 1% OPH SUSPENSION RIGHT EYE SCH ×4 (01:09→18:12)
[2019-01-10] MEDS: ZOVIRAX PO SCH ×4 (01:16→18:04)
[2019-01-10] MEDS: ZOFRAN IV PRN ×3 (05:13→22:31)
--- NOTE | 2019-01-10 08:44 | PROGRESS NOTE ---
DATE: 01/10/2019 SUBJECTIVE: Mr. Zhu last night started getting nausea, and he has some pain and tenderness in the left lower quadrant, but frequent vomiting. He has had a bowel movement last night. OBJECTIVE: Vital Signs: On his exam, he is afebrile. Temperature 98.6 degrees, pulse 94, respirations 16, blood pressure 127/79. Eyes: Pupils are equal and round. Lungs: Clear in all lung tamez. Cardiovascular exam: Regular rhythm and rate without murmur or S3. Abdomen: Soft. Skin: Warm and dry. : Urine output is 1600 mL. ASSESSMENT AND PLAN: 1. This is postoperative day #4. Incision and drainage and open reduction and internal fixation for right grade 3 open ankle fracture dislocation. He is doing well from that standpoint. 2. Looks like he may have some diverticulitis and possibly ileus starting in his abdomen. I am going to get an abdominal KUB, and I am going to put him empirically on some antibiotics to cover for diverticulitis. 3. History of deep vein thrombosis. He is on Coumadin, which has continued. I will check an INR again today this morning, and I need to check a Chem 22 and complete blood count. 4. Congestive heart failure. He is on Ranexa 1500 mg in the morning and 500 mg at bedtime. We are going to have to watch his pro time carefully. 5. Benign prostatic hypertrophy. Aware. cc: Andrew Canseco MD
[2019-01-10 09:20] LABS: BASO# 0.02 X1000 (0.0-0.2); BASO% 0.1 % (0.0-0.8); EOS# 0.07 X1000 (0.0-0.7); EOS% 0.5 % (0.0-10.0); HEMATOCRIT 40.8 % (42.0-52.0); HEMOGLOBIN 13.6 g/dL (14.0-18.0); IMM GRAN% 1.4 % (0.0-0.5); LYMPH# 1.96 X1000 (1.2-3.4); LYMPH% 13.4 % (20.5-51.1); MCH 32.1 PG (27-31); MCHC 33.3 g/dL (33-37); MCV 96.2 FL (81-99); MONO# 0.79 X1000 (0.11-0.59); MONO% 5.4 % (1.7-9.3); MPV 10.8 FL (7.4-10.4); NEUT# 11.64 X1000 (1.4-6.5); NEUT% 79.2 % (42.2-75.2); PLT 244 X1000 (130-400); RBC 4.24 XMIL (4.7-6.1); RDW 15.6 % (11.5-14.5); WBC 14.68 X1000 (4.8-10.8)
[2019-01-10 09:24] LABS: INR 1.66
[2019-01-10 09:38] LABS: MAGNESIUM 2.6 mg/dL (1.5-2.7); PHOSPHORUS 3.4 mg/dL (2.7-4.5)
--- NOTE | 2019-01-10 09:47 | Diag Imaging Result Doc PS360 ---
EXAM: KUB ABDOMEN 01/10/2019 HISTORY: abdominal pain TECHNIQUE: KUB COMMENT: There are multiple distended gas-filled small bowel loops. No evidence of mass is present. There are no previous studies. IMPRESSION: Small bowel obstruction. Electronically signed by Chente Real 01/10/2019 9:45 AM
[2019-01-10 10:04] LABS: AGAP 15; ALB/GLOB RATIO 1.2; ALBUMIN 3.7 g/dL (3.5-5.0); ALKALINE PHOSPHATASE 107 U/L (32-122); BUN 31 mg/dL (8-22); CALCIUM 9.6 mg/dL (8.8-10.2); CHLORIDE 99 mmol/L (98-107); COSMO 295; CREATININE 2.1 mg/dL (0.7-1.2); ESTIMATED GFR 30; GLUCOSE 164 mg/dL (70-104); GOT 24 U/L (10-34); GPT < 5 U/L (10-44); SODIUM 143 mmol/L (136-145); TCO2 29 mmol/L (25-35); TOTAL BILIRUBIN 0.48 mg/dL (0.20-1.00); TOTAL PROTEIN 6.8 g/dL (6.3-8.3)
[2019-01-10] MEDS: CIPRO 400 MG/D5W 400 MG/200 ML IVPB IV SCH ×2 (11:21→22:31)
[2019-01-10] MEDS: FERROUS SULFATE PO SCH (11:25)
[2019-01-10] MEDS: LASIX PO SCH (11:25)
[2019-01-10] MEDS: COREG CR PO SCH (11:25)
[2019-01-10] MEDS: VITAMIN C PO SCH (11:26)
[2019-01-10] MEDS: MYCOSTATIN POWDER TOP SCH (11:26)
[2019-01-10] MEDS: PREDNISONE PO SCH (11:26)
[2019-01-10] MEDS: FLAGYL 500 MG/NS 500 MG/100 ML IVPB IV SCH ×2 (18:01→18:02)
[2019-01-10] MEDS: OXY IR PO PRN (18:12)
[2019-01-10] MEDS: COUMADIN PO SCH (22:31)
[2019-01-11] MEDS: ZOVIRAX PO SCH ×7 (00:03→20:39)
[2019-01-11] MEDS: PROTONIX PO SCH ×3 (00:06→20:38)
[2019-01-11] MEDS: PROSCAR PO SCH ×2 (00:06→20:39)
[2019-01-11] MEDS: RANEXA PO SCH ×3 (00:06→20:39)
[2019-01-11] MEDS: MYCOSTATIN POWDER TOP SCH ×3 (00:07→21:11)
[2019-01-11] MEDS: PRED FORTE 1% OPH SUSPENSION RIGHT EYE SCH ×5 (00:07→21:11)
[2019-01-11] MEDS: MUCINEX D PO SCH ×3 (00:08→20:40)
[2019-01-11] MEDS: FLAGYL 500 MG/NS 500 MG/100 ML IVPB IV SCH ×5 (00:08→20:40)
[2019-01-11] MEDS: COLACE PO SCH ×2 (00:08→20:39)
[2019-01-11] MEDS: URECHOLINE PO SCH ×5 (00:09→20:38)
[2019-01-11] MEDS: ZOFRAN IV PRN (05:01)
[2019-01-11] MEDS: TYLENOL PO SCH ×3 (05:04→16:18)
[2019-01-11 07:12] LABS: INR 1.64; PROTIME 19.7 Seconds (11.0-16.0)
[2019-01-11] MEDS: NS 1,000 ML IV SCH ×3 (08:16→22:46)
--- NOTE | 2019-01-11 10:37 | PROGRESS NOTE ---
DATE: 01/11/2019 SUBJECTIVE: Mr. Zhu feels better. Nausea is less. Abdomen is less distended, less tenderness in the left lower quadrant. OBJECTIVE: Vital signs: Temperature is 98.6 degrees, pulse 82, respirations 16, blood pressure 132/75. HEENT: Pupils are equal round. Lungs: Clear in all lung tamez. Cardiovascular: Regular rhythm and rate without murmur or S3. Abdomen: Soft. Skin: Warm and dry. URINE OUTPUT: 3500 mL. ASSESSMENT AND PLAN: 1. Postoperative day #5 incision and drainage, open reduction and internal fixation for right grade 3 open ankle fracture. Doing well from that standpoint. 2. Looks like he has an ileus and probable diverticulitis. Continue antibiotics. He does feel a little better. The nausea is improved. Just keep him on clear liquids for now. 3. History of deep venous thrombosis. He is on Coumadin. Protime is good. His INR is 1.64. 4. Benign prostatic hypertrophy. Aware. cc: Andrew Canseco MD
[2019-01-11] MEDS: CIPRO 400 MG/D5W 400 MG/200 ML IVPB IV SCH ×2 (11:02→22:32)
[2019-01-11] MEDS: VITAMIN C PO SCH (11:07)
[2019-01-11] MEDS: FERROUS SULFATE PO SCH (11:08)
[2019-01-11] MEDS: COREG CR PO SCH (11:08)
[2019-01-11] MEDS: PREDNISONE PO SCH (11:08)
[2019-01-11] MEDS: LASIX PO SCH (11:09)
[2019-01-11] MEDS: OXY IR PO PRN ×2 (13:34→17:07)
[2019-01-11] MEDS: COUMADIN PO SCH (21:11)
[2019-01-12] MEDS: TYLENOL PO SCH ×3 (01:53→19:59)
[2019-01-12] MEDS: URECHOLINE PO SCH (01:54)
[2019-01-12] MEDS: FLAGYL 500 MG/NS 500 MG/100 ML IVPB IV SCH (01:54)
[2019-01-12] MEDS: ZOFRAN IV PRN (03:38)
[2019-01-12] MEDS: MILK OF MAGNESIA PO PRN (04:35)
[2019-01-12 07:48] LABS: INR 1.84; PROTIME 21.6 Seconds (11.0-16.0)
[2019-01-12] MEDS ORDERED: SODIUM CHLORIDE 0.9% INJ PRN (08:33)
[2019-01-12] MEDS ORDERED: ZOFRAN IV PRN (08:33)
[2019-01-12] MEDS: PHENERGAN IV PRN ×2 (08:47→15:27)
--- NOTE | 2019-01-12 08:53 | PROGRESS NOTE ---
DATE: 01/12/2019 SUBJECTIVE: Mr. Zhu had a little better day yesterday. Appears he had a small bowel obstruction, but last night he got very nauseated, this morning nauseated again and his abdomen is distended, diminished bowel sounds. The left lower quadrant discomfort is better so I am going to put an NG tube in. I am going to ask Surgery to follow and we will discuss with Dr. Dmitry Mclean. OBJECTIVE: Vital signs: Temperature 98.5 degrees, pulse 70, respirations 16, blood pressure 133/68. HEENT: Pupils are equal and round. Lungs: Clear anterolateral. They did report that his saturations had dropped some, but he has not had struggling to breathe really. Abdomen: Distended. Diminished bowel sounds. Extremities: No pedal edema. Right foot wrapped in a cast. He has remained afebrile. Urine output: 1200 mL. ASSESSMENT AND PLAN: 1. Postoperative day #6, incision and drainage and open reduction and internal fixation of the right grade 3 open ankle fracture. Doing well from that standpoint. 2. Small bowel obstruction, ileus. He has a history of colon cancer and colon resection in the distant past. I am going to put an NG tube in, ask Dr. Dmitry Mclean to help. 3. History of deep venous thrombosis. He is on Coumadin and we are following his pro times carefully. His PT is 21 and INR is 1.84. I am going to diminish the Coumadin to 2 mg at bedtime. cc: Andrew Canseco MD
[2019-01-12 08:54] LABS: BASO# 0.01 X1000 (0.0-0.2); BASO% 0.1 % (0.0-0.8); EOS# 0.18 X1000 (0.0-0.7); EOS% 1.8 % (0.0-10.0); HEMATOCRIT 34.3 % (42.0-52.0); IMM GRAN# 0.17 X1000 (0.0-0.04); IMM GRAN% 1.7 % (0.0-0.5); LYMPH# 1.74 X1000 (1.2-3.4); LYMPH% 17.9 % (20.5-51.1); MCH 31.5 PG (27-31); MCHC 32.1 g/dL (33-37); MCV 98.3 FL (81-99); MONO# 0.96 X1000 (0.11-0.59); MONO% 9.9 % (1.7-9.3); MPV 10.8 FL (7.4-10.4); NEUT# 6.68 X1000 (1.4-6.5); NEUT% 68.6 % (42.2-75.2); PLT 220 X1000 (130-400); RBC 3.49 XMIL (4.7-6.1); RDW 15.5 % (11.5-14.5); WBC 9.74 X1000 (4.8-10.8)
[2019-01-12 09:11] LABS: CALCIUM 8.8 mg/dL (8.8-10.2); CREATININE 1.8 mg/dL (0.7-1.2); MAGNESIUM 2.2 mg/dL (1.5-2.7)
--- NOTE | 2019-01-12 10:17 | Diag Imaging Result Doc PS360 ---
EXAM: CHEST/ABD TUBE PLACEMENT 01/12/2019 HISTORY: NG tube placment. TECHNIQUE: AP portable chest and abdomen at 0950 COMMENT: There is an NG tube with its tip in the stomach. There is colonic and small bowel gas. This appears slightly improved since 01/10/2019. IMPRESSION: NG tube in the stomach. Electronically signed by Chente Real 01/12/2019 10:15 AM
[2019-01-12] MEDS: CIPRO 400 MG/D5W 400 MG/200 ML IVPB IV SCH ×2 (11:37→22:08)
--- NOTE | 2019-01-12 13:01 | GENERAL SURGERY CONSULTATION ---
DATE: 01/12/2019 REASON FOR CONSULTATION: Small-bowel obstruction. HISTORY OF PRESENT ILLNESS: This is an 88-year-old male who recently fell and sustained a severe right ankle fracture. He is status post open reduction and internal fixation by Dr. Sparrow 7 days ago. Since that time, he has had waxing and waning abdominal pain with nausea and vomiting. Yesterday, however, he apparently had no pain. According to his family, he was eating and having bowel movements. However, this morning he has had nausea and vomiting and abdominal discomfort. An NG tube has been placed with quite a bit of output recently. The patient is a very poor historian and I got the history from his daughter and . They do report he has a long history of partial colonic obstruction from a previous colon resection for which he takes mineral oil on a daily basis. If he misses it, then he tends to have abdominal distention and nausea. He apparently has not been on it this admission. PAST MEDICAL HISTORY: Colon cancer, DVT, coronary artery disease. PAST SURGICAL HISTORY: Partial colectomy, right rotator cuff repair, cervical spine surgery, lumbar spine surgery, varicose vein surgery, right ankle ORIF. ALLERGIES: Contrast medium, clindamycin, Benadryl, meclizine, metronidazole. HOME MEDICATIONS: Vitamin C, Coreg, Proscar, Lasix, Restoril, prednisone, acyclovir, bethanechol, cyclobenzaprine, gabapentin, losartan, meloxicam, pantoprazole, Coumadin and mineral oil. CURRENT MEDICATIONS: Include Ranexa, Coumadin, Protonix, oxycodone, milk of magnesia, Haldol, guaifenesin, Proscar, Colace, ciprofloxacin, Coreg, acyclovir. FAMILY HISTORY: Reviewed and noncontributory. SOCIAL HISTORY: He quit smoking when he was 42. He is . No illicit drug use or alcohol use. REVIEW OF SYSTEMS: Really unobtainable as the patient appears to be somewhat confused and not willing to talk much. PHYSICAL EXAMINATION: Vital Signs: Temperature 98 degrees, pulse 90, respirations 18, blood pressure 126/74, O2 saturation 93%. General: He is an elderly male who is somewhat agitated but in no acute distress. HEENT: Normocephalic, atraumatic. Extraocular muscles intact. Pupils equal, round, reactive to light. Sclerae anicteric. NG tube is in place with bilious output. Neck: Supple. No thyromegaly. Cardiovascular: Regular rate and rhythm. Respiratory: Bilateral breath sounds. No work of breathing. Gastrointestinal: Soft, somewhat distended, quiet bowel sounds. No organomegaly or mass. Minimally tender. Extremities: No clubbing, cyanosis, or edema. Extremities: His left leg has no clubbing, cyanosis, or edema. His right leg is in a large brace. Musculoskeletal: He moves his arms and left leg well. LABORATORY DATA: White cell count 9, hemoglobin 11, hematocrit 34, platelet count 220,000. Electrolytes reviewed and notable for BUN of 31, creatinine 1.8. IMAGING: Abdominal x-ray yesterday showed multiple distended gas-filled small bowel loops. ASSESSMENT AND PLAN: An 88-year-old male with partial small-bowel obstruction versus ileus in the setting of new immobility. He is actively trying to take out his NG tube and demanding it be taken out. I strongly encouraged him to let it stay in. I tried to assess his mental status, but he refused to talk to me. In the meantime, I will start back his mineral oil to see if that helps him improve his bowel function. cc: MD Andrew Dominguez MD
[2019-01-12] MEDS: ZOVIRAX PO SCH ×5 (13:48→21:11)
[2019-01-12] MEDS: PRED FORTE 1% OPH SUSPENSION RIGHT EYE SCH ×4 (14:37→21:10)
[2019-01-12] MEDS ORDERED: CHLORASEPTIC SPRAY MT PRN (15:26)
[2019-01-12] MEDS: COREG CR PO SCH (15:27)
[2019-01-12] MEDS: MYCOSTATIN POWDER TOP SCH ×2 (15:28→21:10)
[2019-01-12] MEDS: MUCINEX D PO SCH ×2 (15:28→21:09)
[2019-01-12] MEDS: PROTONIX PO SCH ×2 (15:29→21:11)
[2019-01-12] MEDS: NS 1,000 ML IV SCH (15:29)
[2019-01-12] MEDS: RANEXA PO SCH ×2 (15:43→21:11)
[2019-01-12] MEDS: MINERAL OIL PO SCH ×2 (15:59→21:10)
[2019-01-12] MEDS ORDERED: COUMADIN PO SCH (21:00)
[2019-01-12] MEDS: COLACE PO SCH (21:10)
[2019-01-12] MEDS: PROSCAR PO SCH (21:11)
[2019-01-13] MEDS: TYLENOL PO SCH ×3 (01:19→17:25)
[2019-01-13] MEDS: NS 1,000 ML IV SCH ×2 (01:56→13:50)
[2019-01-13] MEDS: OXY IR PO PRN (05:15)
[2019-01-13 07:01] LABS: INR 2.38; PROTIME 26.6 Seconds (11.0-16.0)
[2019-01-13 07:15] LABS: CREATININE 1.6 mg/dL (0.7-1.2); MAGNESIUM 2.1 mg/dL (1.5-2.7); POTASSIUM 3.9 mmol/L (3.5-5.1)
--- NOTE | 2019-01-13 08:23 | Diag Imaging Result Doc PS360 ---
EXAM: FLAT/UPRIGHT ABD/1 VIEW CHEST 01/13/2019 HISTORY: sbo vs ileus TECHNIQUE: Flat and upright abdomen with AP chest COMMENT: There is platelike atelectasis in both lung bases. This is worse than on 01/05/2019. There is an NG tube which passes below the diaphragm. The tip is in the cardia or fundus of the stomach. There are air-fluid levels in the small bowel and gas within the sigmoid colon. This was also the case on 01/10/2019. There is solid stool throughout the left colon. IMPRESSION: 1. Bibasilar atelectasis. 2. Constipation and possible ileus. Electronically signed by Chente Real 01/13/2019 8:20 AM
--- NOTE | 2019-01-13 08:52 | GENERAL SURGERY PROGRESS NOTE ---
DATE: 01/13/2019 SUBJECTIVE: The patient feels better this morning. He denies abdominal pain or nausea. He did end up keeping his NG tube. His delirium improved. He is no longer on Phenergan. PHYSICAL EXAMINATION: GI: Soft, nontender. Minimally distended. Hypoactive bowel sounds. LABORATORY DATA: Electrolyte panel reviewed and notable for BUN 27, creatinine 1.6. IMAGING: His abdominal x-ray was reviewed and it again shows gas-distended loops of small bowel and some colon gas as well. ASSESSMENT AND PLAN: An 88-year-old male with a small bowel obstruction. He is stable. We will continue current care with the NG tube to suction. We are also giving him a gentle bowel stimulation with milk of magnesia and mineral oil. cc: MD Andrew Dominguez MD
[2019-01-13] MEDS: COREG CR PO SCH (10:09)
[2019-01-13] MEDS: ZOVIRAX PO SCH ×5 (10:09→22:24)
[2019-01-13] MEDS: CIPRO 400 MG/D5W 400 MG/200 ML IVPB IV SCH ×2 (10:09→22:21)
[2019-01-13] MEDS: PROTONIX PO SCH ×2 (10:10→22:24)
[2019-01-13] MEDS: MYCOSTATIN POWDER TOP SCH ×2 (10:11→22:23)
[2019-01-13] MEDS: MINERAL OIL PO SCH ×2 (10:11→22:25)
[2019-01-13] MEDS: PRED FORTE 1% OPH SUSPENSION RIGHT EYE SCH ×4 (10:11→22:25)
[2019-01-13] MEDS: MUCINEX D PO SCH ×2 (10:11→22:25)
--- NOTE | 2019-01-13 13:08 | PROGRESS NOTE ---
DATE: 01/13/2019 SUBJECTIVE: Mr. Zhu still has an NG tube in. He had a good deal of delirium and agitation last night. He is feeling better. The nausea is resolved. Still no bowel movement. Diminished bowel sounds in his abdomen. OBJECTIVE: Vital signs: Temperature 98.7 degrees, pulse 70, respirations 16, blood pressure 141/76. HEENT: Pupils are equal round. Lungs: Lungs are clear in all lung tamez. Cardiovascular: Regular rhythm and rate without murmur or S3. Abdomen: Soft and nondistended, at this point NG tube in place. Output: Urine output about 1000 mL. ASSESSMENT AND PLAN: 1. An 88-year-old with an exposed ankle fracture, grade 3, status post open reduction and I and D, and he is doing well from that standpoint. 2. He has an ileus versus small bowel obstruction. NG tube is helping with decompression. We have tried to cut down his p.o. medications. His abdominal x-ray from this morning showed bibasilar atelectasis, constipation, and possible ileus. 3. Deep venous thrombosis. He is on Coumadin, and his ProTime is therapeutic. I might cut down his Coumadin. ProTime is 26, and INR is 2.38, so I am going to cut down further. In fact, I am going to hold his Coumadin for right now. 4. Continue physical therapy. Continue to try and get him up. He also has a history of congestive heart failure. He appears to be well compensated at this time. cc: Andrew Canseco MD
[2019-01-13] MEDS: RANEXA PO SCH ×2 (17:24→22:24)
[2019-01-13] MEDS: PROSCAR PO SCH (22:24)
[2019-01-13] MEDS: COLACE PO SCH (22:24)
[2019-01-14] MEDS: NS 1,000 ML IV SCH ×2 (02:53→16:11)
[2019-01-14] MEDS: TYLENOL PO SCH ×3 (02:57→20:10)
[2019-01-14 06:35] LABS: INR 2.56; PROTIME 28.2 Seconds (11.0-16.0)
[2019-01-14 06:39] LABS: CALCIUM 8.9 mg/dL (8.8-10.2); CREATININE 1.3 mg/dL (0.7-1.2); POTASSIUM 4.1 mmol/L (3.5-5.1)
[2019-01-14] MEDS ORDERED: FLEET ENEMA PR ONE (09:02)
--- NOTE | 2019-01-14 09:36 | PROGRESS NOTE ---
DATE: 01/14/2019 SUBJECTIVE: Mr. Zhu still has an NG tube in. It is uncomfortable. The nausea has resolved. His abdomen is less distended. Still has not had a bowel movement. OBJECTIVE: Vital Signs: Temp 98.1 degrees, pulse 70, respirations 17, blood pressure 142/77. HEENT: Pupils are equal. Lungs: Clear anterolateral. Cardiovascular: Regular rhythm and rate without murmur or S3. Abdomen: Firm, nontender. Diminished bowel sounds. Urine output is 3600 mL. ASSESSMENT AND PLAN: 1. Small-bowel obstruction. He is stable. Continue nasogastric tube suction. Will put some lactulose down through the tube. He is also getting mineral oil. 2. Trimalleolar fracture, open fracture, severe break, which has been lavaged and internal fixation, and that seems to be healing well. It is in a cast on his right leg. 3. History of deep venous thrombosis. He is on Coumadin. I have held the Coumadin because ProTime is 28. Continue to check that every day. His hematocrit is 34, hemoglobin 11, which is stable. I am going to try and put some lactulose through the tube 3 times a day. Continue otherwise intermittent suction. He has a distant history of colon resection, partial colectomy for colon cancer, and it appears that the small-bowel obstruction may be improving. cc: Andrew Canseco MD
[2019-01-14] MEDS: CIPRO 400 MG/D5W 400 MG/200 ML IVPB IV SCH ×2 (09:40→23:00)
[2019-01-14] MEDS: MINERAL OIL PO SCH ×2 (09:41→20:41)
[2019-01-14] MEDS: PROTONIX PO SCH ×2 (09:42→20:40)
[2019-01-14] MEDS: ZOVIRAX PO SCH ×5 (09:42→20:40)
[2019-01-14] MEDS: MUCINEX D PO SCH ×2 (09:42→20:40)
[2019-01-14] MEDS: PRED FORTE 1% OPH SUSPENSION RIGHT EYE SCH ×4 (09:43→20:39)
[2019-01-14] MEDS: MYCOSTATIN POWDER TOP SCH ×2 (09:43→20:39)
[2019-01-14] MEDS: COREG CR PO SCH (09:46)
--- NOTE | 2019-01-14 10:02 | Diag Imaging Result Doc PS360 ---
EXAM: CHEST-PORTABLE HISTORY: confirm placement of NG tube TECHNIQUE: Portable chest abdomen COMPARISON: 01/13/2019 FINDINGS: There is a nasogastric tube overlying the distal esophagus. The tip is near the gastroesophageal junction. It needs to be advanced. There are dilated bowel loops. IMPRESSION: Nasogastric tube tip needs to be advanced and is currently near the gastroesophageal junction Electronically signed by Kosta Bey 01/14/2019 10:00 AM
--- NOTE | 2019-01-14 10:07 | GENERAL SURGERY PROGRESS NOTE ---
DATE: 01/14/2019 SUBJECTIVE: The patient is feeling better. He denies abdominal pain. No flatus or bowel movement yet. OBJECTIVE: Vital Signs: He is afebrile. Vital signs are stable. General: He is awake, alert, and oriented x3. No acute distress. HEENT: NG tube 100 mL. GI: Soft, nontender, nondistended. IMAGING: None today, but yesterday showed gas distended colon and small bowel with a fair amount of stool in the left colon. LABORATORY DATA: Electrolytes were reviewed and unremarkable. ASSESSMENT AND PLAN: An 88-year-old male with partial bowel obstruction and constipation. He is somewhat improved, but not having bowel movements yet. He is getting some gentle bowel stimulation through the nasogastric tube, and we will also order an enema. Once his bowels are moving better, we will discontinue the nasogastric tube, and advance his diet. cc: MD Andrew Dominguez MD
[2019-01-14] MEDS: LACTULOSE NG SCH (10:53)
[2019-01-14] MEDS: RANEXA PO SCH ×2 (20:11→20:40)
[2019-01-14] MEDS: PROSCAR PO SCH (20:40)
[2019-01-15] MEDS: TYLENOL PO SCH ×3 (01:26→18:17)
[2019-01-15] MEDS: LACTULOSE NG SCH ×3 (05:10→20:52)
[2019-01-15] MEDS: COLACE PO SCH ×2 (05:10→20:51)
[2019-01-15] MEDS: NS 1,000 ML IV SCH (05:42)
[2019-01-15 06:04] LABS: INR 2.86; PROTIME 30.8 Seconds (11.0-16.0)
[2019-01-15 06:24] LABS: ALB/GLOB RATIO 1.2; ALBUMIN 2.7 g/dL (3.5-5.0); CALCIUM 8.6 mg/dL (8.8-10.2); CREATININE 1.2 mg/dL (0.7-1.2); MAGNESIUM 1.7 mg/dL (1.5-2.7); POTASSIUM 3.7 mmol/L (3.5-5.1); TOTAL BILIRUBIN 0.56 mg/dL (0.20-1.00); TOTAL PROTEIN 4.9 g/dL (6.3-8.3)
--- NOTE | 2019-01-15 07:26 | Diag Imaging Result Doc PS360 ---
EXAM: CHEST-PORTABLE INDICATION: Ng placement TECHNIQUE: One view COMPARISON: 01/14/2019 FINDINGS: The tip of the NG tube is still near the gastroesophageal junction and probably in the distal esophagus. Advancement of 7 to 8 cm is recommended. The lungs are overexposed due to focus on the NG tube but they appear to be approximately stable. Distended loops of bowel in the upper abdomen are essentially stable. IMPRESSION: NG tube tip in stable position, likely in distal esophagus. Advancement of 7 to 8 cm suggested. Electronically signed by Bennie Winters 01/15/2019 7:24 AM
--- NOTE | 2019-01-15 09:16 | GENERAL SURGERY PROGRESS NOTE ---
DATE: 01/15/2019 SUBJECTIVE: The patient feels better. He has had multiple [id number] bowel movements. He denies abdominal pain, nausea, or vomiting. OBJECTIVE: Vital Signs: T-max 100.1 degrees, current temperature 98.4 degrees, pulse 93, respirations 20, blood pressure 128/67, O2 saturation 99%. General: He is awake and alert. He is in no acute distress. Not agitated. GI: Soft and nontender. He is mildly distended. He does have a few bowel sounds. LABORATORY DATA: Electrolytes reviewed and unremarkable. ASSESSMENT AND PLAN: An 88-year-old male with partial bowel obstruction and constipation. This appears to be improved. His nasogastric tube has been removed. He was started on a liquid diet. We will monitor how he tolerates this today before advancing. cc: MD Andrew Dominguez MD
--- NOTE | 2019-01-15 09:23 | PROGRESS NOTE ---
DATE: 01/15/2019 SUBJECTIVE: Mr. Zhu is uncomfortable. He has had 3 bowel movements. He is uncomfortable with the NG tube, so we will pull the NG tube out. He also had a little urinary retention. Bladder scan showed about 500 mL. He does not want a Hollingsworth catheter in, but he feels better. No nausea. OBJECTIVE: Vital Signs: Temp 98.4 degrees, pulse 90, respirations 20, blood pressure 128/67. HEENT: Pupils are equal and round. Lungs: Clear in all lung tamez. Cardiovascular: Regular rhythm and rate without murmur or S3. Urine output was 6000 mL. IMAGING: Chest x-ray from today: NG tube tip in stable position, likely distal esophagus. ASSESSMENT AND PLAN: 1. Partial bowel obstruction and constipation. He has improved. Not having bowel movements. He is getting some gentle stimulation through the nasogastric tube. He really wants the tube out, so we will take the tube out, see if we can increase his mobility. 2. Trimalleolar open fracture, severe break, status post irrigation and internal fixation. 3. History of deep venous thrombosis. His ProTime is 30. He has been off Coumadin, so will let that ProTime come down. Sodium 135, potassium 3.7, chloride 104, BUN 15, creatinine 1.2. Will have full liquid diet, and then advanced him to soft. cc: Andrew Canseco MD
[2019-01-15] MEDS: PRED FORTE 1% OPH SUSPENSION RIGHT EYE SCH ×4 (11:17→20:54)
[2019-01-15] MEDS: PROTONIX PO SCH ×2 (11:18→20:54)
[2019-01-15] MEDS: CIPRO 400 MG/D5W 400 MG/200 ML IVPB IV SCH ×2 (11:18→21:17)
[2019-01-15] MEDS: MUCINEX D PO SCH ×2 (11:18→20:53)
[2019-01-15] MEDS: ZOVIRAX PO SCH ×5 (11:19→20:55)
[2019-01-15] MEDS: MINERAL OIL PO SCH ×2 (11:19→20:52)
[2019-01-15] MEDS: MYCOSTATIN POWDER TOP SCH ×2 (11:20→20:57)
[2019-01-15] MEDS: COREG CR PO SCH (11:20)
[2019-01-15] MEDS: RANEXA PO SCH ×2 (15:40→20:54)
[2019-01-15] MEDS: PROSCAR PO SCH (20:53)
[2019-01-16] MEDS: TYLENOL PO SCH ×3 (02:37→17:30)
[2019-01-16 07:25] LABS: CALCIUM 8.4 mg/dL (8.8-10.2); CREATININE 1.2 mg/dL (0.7-1.2); POTASSIUM 3.8 mmol/L (3.5-5.1)
[2019-01-16] MEDS: COREG CR PO SCH (09:10)
[2019-01-16] MEDS: PRED FORTE 1% OPH SUSPENSION RIGHT EYE SCH ×4 (09:10→21:31)
[2019-01-16] MEDS: MINERAL OIL PO SCH ×2 (09:11→22:32)
[2019-01-16] MEDS: MUCINEX D PO SCH ×2 (09:11→21:30)
[2019-01-16] MEDS: CIPRO 400 MG/D5W 400 MG/200 ML IVPB IV SCH ×2 (09:12→22:22)
[2019-01-16] MEDS: PROTONIX PO SCH ×2 (09:17→21:30)
[2019-01-16] MEDS: MYCOSTATIN POWDER TOP SCH ×2 (09:18→21:31)
[2019-01-16] MEDS: ZOVIRAX PO SCH ×5 (09:20→21:30)
[2019-01-16] MEDS: LACTULOSE NG SCH ×2 (09:23→22:31)
--- NOTE | 2019-01-16 09:37 | GENERAL SURGERY PROGRESS NOTE ---
DATE: 01/16/2019 SUBJECTIVE: The patient is doing better. He denies abdominal pain, nausea, or vomiting. He is tolerating his liquid diet. He is passing gas, and has had a bowel movement. OBJECTIVE: Vital Signs: He is afebrile. Vital signs are stable. General: He is awake, alert, and oriented x3. No acute distress. GI: Soft, nontender, nondistended. He does have good bowel sounds. ASSESSMENT AND PLAN: An 88-year-old male with partial small-bowel obstruction or ileus, which seems to be resolving. We will advance him to a soft diet, and monitor his progress. cc: MD Andrew Dominguez MD
--- NOTE | 2019-01-16 10:05 | PROGRESS NOTE ---
DATE: 01/16/2019 SUBJECTIVE: Mr. Zhu is feeling much better. NG tube is out. Had a good night. No nausea. He is asking for a soft diet. He was on full liquids yesterday. OBJECTIVE: Vital Signs: Remains afebrile, temperature 98.6 degrees, pulse 84, respirations 18, blood pressure 133/71. Eyes: Pupils are equal and round. Lungs: Clear in all lung tamez. Cardiovascular exam: Regular rhythm and rate without murmur or S3. Abdomen: Soft. Skin: Skin is warm and dry. ASSESSMENT AND PLAN: 1. Partial small-bowel obstruction or ileus, which is resolving. Advance him to a soft diet. 2. Trimalleolar open fracture, and he is healing fairly well. 3. He is on Coumadin; he has had to stop it because of elevation in pro time level. His pro time was 30. We will check it again in the morning, but he has been off his Coumadin. 4. Continue physical therapy. Hopefully he can go to [facility] in [place] tomorrow. We will see how we do today. Review of his orders: I do not see any change. cc: Andrew Canseco MD
[2019-01-16] MEDS ORDERED: MAALOX PLUS LIQUID PO PRN (12:01)
--- NOTE | 2019-01-16 12:12 | PROGRESS NOTE ---
DATE: 01/16/2019 SUBJECTIVE: He feels much better. Would like to advance to a soft diet. His bowels are moving and his abdomen is soft. No nausea this morning. OBJECTIVE: Temperature 98.2 degrees, pulse 70, respirations 16, blood pressure 131/66. Pupils are equal and round. Lungs are clear in all lung tamez. Cardiovascular Examination: Regular rhythm and rate without murmur or S3. Abdomen is soft. Skin is warm and dry. ASSESSMENT AND PLAN: 1. Partial small-bowel obstruction with ileus. Advance to a soft diet. 2. Trimalleolar open fracture, which is healing well. 3. Coumadin level, we will check again. We have stopped his Coumadin. History of deep venous thrombosis in the past. Seems to be making progress. Hopefully to [facility] soon. cc: Andrew Canseco MD
[2019-01-16] MEDS: RANEXA PO SCH ×2 (17:29→21:30)
[2019-01-16] MEDS: COLACE PO SCH (21:30)
[2019-01-16] MEDS: PROSCAR PO SCH (21:30)
[2019-01-16] MEDS: NS 1,000 ML IV SCH (22:22)
[2019-01-17] MEDS: TYLENOL PO SCH ×3 (00:14→17:09)
--- NOTE | 2019-01-17 06:50 | ORTHOPAEDICS PROGRESS NOTE ---
DATE: 01/17/2019 SUBJECTIVE: The patient is a pleasant, 88-year-old male who is 12 days status post I and D, and open reduction and internal fixation for a right grade 3A open ankle fracture-dislocation. The patient is currently being maintained in a short leg cast. He is feeling better. He is able to tolerate removal of the NG tube. PHYSICAL EXAMINATION: The patient's right lower extremity's cast is in place. He has good capillary refill distally. Able to flex and extend all of his toes. He is grossly neurovascularly intact. IMPRESSION: Postoperative day #12 status post incision and drainage, and open reduction and internal fixation of right grade 3A open ankle fracture-dislocation. PLAN: At this point, we will continue the existing cast. He will be nonweightbearing to the right lower extremity. He is stable from an orthopedic standpoint. The patient will follow up in the office next week for removal of the cast and for suture and staple removal. cc: MD Andrew Mendes MD
[2019-01-17] MEDS: LACTULOSE NG SCH (09:40)
[2019-01-17] MEDS: PRED FORTE 1% OPH SUSPENSION RIGHT EYE SCH ×4 (09:40→22:40)
[2019-01-17] MEDS: MUCINEX D PO SCH (09:41)
[2019-01-17] MEDS: COREG CR PO SCH (09:41)
[2019-01-17] MEDS: MINERAL OIL PO SCH (09:41)
[2019-01-17] MEDS: PROTONIX PO SCH (09:41)
[2019-01-17] MEDS: ZOVIRAX PO SCH ×3 (09:41→17:08)
[2019-01-17] MEDS: CIPRO 400 MG/D5W 400 MG/200 ML IVPB IV SCH (09:42)
[2019-01-17] MEDS ORDERED: NS 1,000 ML IV SCH (09:56)
--- NOTE | 2019-01-17 10:14 | PROGRESS NOTE ---
DATE: 01/17/2019 SUBJECTIVE: Mr. Zhu feels much better. His bowels are moving, but does not seem he was able to void very well; just having a little bit of urine output at the time. His bowels are moving. He is eating well, tolerating that. No nausea. Remains afebrile. OBJECTIVE: Vital Signs: Temperature 98.3 degrees, pulse 74, respirations 16, blood pressure 142/76. Eyes: Pupils are equal and round. Lungs: Clear in all lung tamez. Cardiovascular exam: Regular rhythm and rate without murmur or S3. ASSESSMENT/PLAN: 1. Partial small-bowel obstruction and ileus, which is resolved. He is tolerating soft diet. 2. Trimalleolar open fracture on his right ankle in a cast, doing well. Status post irrigation and open reduction and internal fixation. 3. Coumadin level has been high in his pro time, and it looks like it will start to come down. He is at 30 right now. I will stop his antibiotics, and I am going to stop his fluids. cc: Andrew Canseco MD
[2019-01-17] MEDS: RANEXA PO SCH ×2 (17:08→22:40)
[2019-01-17] MEDS: PROSCAR PO SCH (22:40)
[2019-01-18] MEDS: ZOVIRAX PO SCH ×4 (00:29→12:39)
[2019-01-18] MEDS: TYLENOL PO SCH ×2 (01:10→09:29)
[2019-01-18] MEDS: MYCOSTATIN POWDER TOP SCH ×2 (01:24→06:10)
[2019-01-18] MEDS: COLACE PO SCH (01:25)
[2019-01-18] MEDS: LACTULOSE NG SCH ×2 (01:31→12:14)
[2019-01-18] MEDS: MINERAL OIL PO SCH ×2 (01:31→09:30)
--- NOTE | 2019-01-18 08:51 | GENERAL SURGERY PROGRESS NOTE ---
DATE: 01/18/2019 SUBJECTIVE: The patient is feeling okay. He denies abdominal pain. He has eaten a reasonable amount of food without vomiting. He reports occasional nausea and bloating but mainly just feels full when he eats. He is passing gas. His last bowel movement was recorded 2 days ago. OBJECTIVE: Vitals: He is afebrile. Vital signs are stable. General: He is awake, alert, oriented x3. No acute distress. GI: Soft, nondistended, nontender. He has good bowel sounds. ASSESSMENT AND PLAN: An 88-year-old male with right ankle fractures status post open reduction and internal fixation. He had postoperative ileus. This has resolved. I will sign off. Thank you for the consult. cc: MD Andrew Dominguez MD
[2019-01-18] MEDS ORDERED: PROTONIX PO SCH (09:00)
[2019-01-18] MEDS: PRED FORTE 1% OPH SUSPENSION RIGHT EYE SCH ×2 (09:27→12:40)
[2019-01-18] MEDS: COREG CR PO SCH (09:29)
--- NOTE | 2019-01-18 10:34 | DISCHARGE SUMMARY ---
ADMISSION DATE: 01/05/2019 DISCHARGE DATE: 01/18/2019 HOSPITAL COURSE: This is an 88-year-old who fell at his house and suffered a trimalleolar fracture in the right leg that was an open fracture and so required irrigation internal fixation per Dr. Sparrow. He did well postop. He developed an ileus and partial small bowel obstruction, had to have an NG tube. He did have some delirium which resolved and then also had extended bladder and did put a Hollingsworth catheter in for a short time. Had an NG tube. They will take that out. He is eating, tolerating soft diet, tolerating physical therapy. I will keep his Hollingsworth catheter in. I put him on high-dose Flomax and Proscar and feel like he would benefit from going to rehab. DISCHARGE ORDERS: I think we can stop the Zovirax at this time. He was getting 800 mg p.o. 5 times a day. Coreg 40 mg p.o. in the morning, Colace 200 mg at bedtime, Proscar 5 mg at bedtime, lactulose 30 mL b.i.d., milk of magnesia as needed. He can have some Mycostatin powder twice a day as needed, Oxy IR 5 mg q.3 hours p.r.n. pain, Protonix 40 mg a day, prednisone Forte 1% ophthalmic suspension to the right eye 4 times a day, Ranexa 500 mg at night, 1500 mg in the morning. We had held his Coumadin and we probably need to start him back on some Coumadin. He needs to get his level checked once a week. He was taking 3 mg at bedtime, so put him back on 3 mg at bedtime. Will keep the Hollingsworth catheter in. They can try and discontinue it after a week. Continue the Proscar and Flomax. cc: Andrew Canseco MD
[2019-01-18 11:01] LABS: INR 1.65; PROTIME 19.8 Seconds (11.0-16.0)
[2019-01-18 13:03] VITALS: BP 91/68
== END 2019-01-18 14:54 | DRG 493 ==
LOC: SUPCPDRO → ED 14:30 → 4N 22:11
PROVIDERS: ADMIT Emergency Medicine; ATTEND Emergency Medicine